=== PATIENT | female | born 1940 | race Caucasian/White ===

== ENCOUNTER 2019-12-01 10:51 | Outpatient (CLI) | payer MEDICARE, SELFPAY ==
--- NOTE | ~2019-12-01 | XR_ITS ---
EXAMINATION: XR lumbar spine 2-3V DATE: 12/01/2019 11:09 INDICATION: Radiculopathy and left groin pain TECHNIQUE: Anteroposterior and lateral views of the lumbar spine, and cone-down lateral view of the l umbosacral junction were obtained. COMPARISON: 07/08/2016 FINDINGS: There are 5 mm of stable anterolisthesis of L4 on L5 and 3 mm of stable retrolisthesis of L 2 on L3 and L3 on L4. There is severe loss of intervertebral disc space height at all levels of the l umbar spine. There is no fracture. The vertebral body heights are normal. There is severe facet osteo arthritis of the lower lumbar spine. The bowel gas pattern is normal. Calcified atherosclerosis is no hoang. IMPRESSION: 1. Severe lumbar spondylosis without acute findings or significant interval change. Reviewed, dictated and finalized at location B. IMPRESSION: 1. Severe lumbar spondylosis without acute findings or significant interval jayde nge.
== END 2019-12-01 10:52 | disposition home or self-care (01) ==
LOC: CHSIMG 10:54
PROVIDERS: PCP Physician Assistant; Visit Provider Physician Assistant
DX: M54.16 Radiculopathy, lumbar region (principal)
CPT/HCPCS: 72100

== ENCOUNTER 2020-02-10 11:35 | Outpatient (CLI) | payer MEDICARE, SELFPAY ==
--- NOTE | 2020-02-10 12:23 | ECHO_ITS ---
Patient Info Name: William Kimball Age: 79 years : 1940 Gender: Female Ht: 65 in Wt: 128 lbs BSA: 1.63 m2 HR: 77 bpm BP: 147 / 70 mmHg Heart Rhythm: Sinus Rhythm Technical Quality: Fair Exam Date: 02/10/2020 12:54 PM Exam Location: [facility], [place] Patient Status: Outpatient Admit Date: 02/10/2020 Staff Ordering Physician: Surendra Cox DO Manager Assembly: Beverley Gonzalez RDCS Attending Provider: Surendra Cox DO Referring Physician: Kenny AMBROCIO; Exam Type: CA echo dop color flow w con Study Info Indications I35.1 - Nonrheumatic aortic (valve) insufficiency Strain analysis performed. Complete two-dimensional, color flow and Doppler transthoracic echocardiogram is performed with contrast to opacify the left ventricle and to improve the deliniation of the left ventricle endocardial borders. Contrast/Agitated Saline Contrast/Ag. Saline: Definity Amount: 4.00 ml New IV Access: Antecubital Space and Left Site Condition: No extravasation, Site dressing applied and IV removed History/Risk Factors Hypertension: Yes Dyslipidemia: Yes Congenital Heart Disease (CHD): No Peripheral Arterial Disease (PAD): No Myocardial Infarction (DC): No Chronic Lung Disease: No Obesity: No Renal Disease: No Coronary Artery Disease (CAD) No Congestive Heart Failure (CHF): No Cardiomyopathy/LV Systolic Dysfunction: No Diabetes Mellitus: No COPD: No Tobacco Use: Never Cerebrovascular Disease: No Family History: Coronary Artery Disease Deep Vein Thrombosis (DVT): None Dialysis: None Frailty Scale (CSHA): 2: Well Cardiac Arrest: No Summary 1. Left ventricular chamber dimension is normal. 2. Definity contrast administered improved wall motion interpretation. 3. Left ventricular systolic function is normal, estimated at 65-70%. 4. The left ventricular diastolic function is grade I diastolic dysfunction. 5. E/e' 10 is mildly elevated. 6. Global longitudinal strain is normal at -22.7%. 7. There is mild aortic valve sclerosis. 8. There is mild to moderate aortic valve regurgitation. 9. No pulmonary hypertension, estimated pulmonary arterial systolic pressure is 35 mmHg. Left Ventricle Definity contrast administered improved wall motion interpretation. E/e' 10 is mildly elevated. Global longitudinal strain is normal at -22.7%. Left ventricular chamber dimension is normal. Left ventricular systolic function is normal, estimated at 65-70%. The left ventricular diastolic function is grade I diastolic dysfunction. Right Ventricle Right ventricular chamber dimension is normal. Right ventricular systolic function is normal. Left Atria Left atrial chamber dimension is normal. Right Atria Chiari network noted in right atrium which is normal remnant. Right atrial chamber dimension is normal. Aortic Valve Cannot determine number of aortic valve leaflets. The aortic valve is not well visualized. There is mild aortic valve sclerosis. There is no aortic valve stenosis. There is mild to moderate aortic valve regurgitation. Pulmonic Valve There is no pulmonic regurgitation. Mitral Valve There is no mitral valve stenosis. There is no mitral valve regurgitation. Tricuspid Valve There is no tricuspid valve regurgitation. No pulmonary hypertension, estimated pulmonary arterial systolic pressure is 35 mmHg. Pericardium/Pleural
[2020-02-10 12:44] LABS: Alanine Aminotransferase 23 U/L (14-59); Albumin Level 4.2 g/dL (3.4-5.0); Alkaline Phosphatase 57 U/L (46-116); Anion Gap 8 mmol/L (8-16); Aspartate Amino Transferase 20 U/L (15-37); Bilirubin,Total 0.6 mg/dL (0.00-1.00); Blood Urea Nitrogen 17 mg/dL (7-18); Calcium 9.6 mg/dL (8.5-10.1); Carbon Dioxide 30 mmol/L (21-32); Chloride 103 mmol/L (98-108); Cholesterol 168 mg/dL (0-200); Estimated Glomerular Filt Rate > 60; Glucose 85 mg/dL (70-99); HDL Direct 53 mg/dL (40-60); LDL Cholesterol Calculated 104 mg/dL (<130); Osmolality Calculated 292 mOsm/kg (285-295); Potassium 4.1 mmol/L (3.5-5.1); Sodium 141 mmol/L (136-145); Total Protein 6.8 g/dL (6.4-8.2); Triglycerides 56 mg/dL (0-150)
== END 2020-02-10 11:36 | disposition home or self-care (01) ==
LOC: CHSIMG 11:36
PROVIDERS: PCP Physician Assistant; Visit Provider Internal Medicine Cardiovascular Disease
DX: E78.5 Hyperlipidemia, unspecified (principal); I35.1 Nonrheumatic aortic (valve) insufficiency
CPT/HCPCS: 36415; 80053; 80061; C8929

== ENCOUNTER 2022-03-01 12:16 | Outpatient (CLI) | payer MEDICARE, SELFPAY ==
--- NOTE | 2022-03-01 12:22 | ECHO_ITS ---
Patient Info Name: William Kimball Age: 81 years : 1940 Gender: Female Ht: 64 in Wt: 123 lbs BSA: 1.59 m2 HR: 67 bpm BP: 181 / 83 mmHg Technical Quality: Fair Exam Date: 03/01/2022 12:21 PM Exam Location: [facility] Patient Status: Outpatient Admit Date: 03/01/2022 Staff Ordering Physician: Surendra Cox DO Director Of Agronomy: Hussein Jordan RDCS, RT Attending Provider: Surendra Cox DO Referring Physician: Kenny AMBROCIO; Exam Type: CA echo doppler color flow Study Info Indications I35.1 - Nonrheumatic aortic (valve) insufficiency Complete two-dimensional, color flow and Doppler transthoracic echocardiogram is performed. Strain analysis performed. History/Risk Factors Hypertension: Yes Dyslipidemia: Yes Congenital Heart Disease (CHD): No Peripheral Arterial Disease (PAD): No Myocardial Infarction (KS): No Chronic Lung Disease: No Obesity: No Renal Disease: No Coronary Artery Disease (CAD) No Congestive Heart Failure (CHF): No Cardiomyopathy/LV Systolic Dysfunction: No Diabetes Mellitus: No COPD: No Tobacco Use: Never Cerebrovascular Disease: No Family History: Coronary Artery Disease Deep Vein Thrombosis (DVT): None Dialysis: None Frailty Scale (CSHA): 2: Well Cardiac Arrest: No Summary 1. Complete two-dimensional, color flow and Doppler transthoracic echocardiogram is performed. 2. Left ventricular chamber dimension is normal. 3. Left ventricular systolic function is normal, estimated at 60-65%. 4. The left ventricular diastolic function is grade I diastolic dysfunction. 5. E/e' 9 is minimally elevated. 6. Global longitudinal strain is normal at -21.4%. 7. There is mild aortic valve sclerosis. 8. There is mild aortic valve regurgitation. 9. The mitral valve has mildly calcified annulus. 10. There is mild mitral valve regurgitation. 11. There is trace tricuspid valve regurgitation. Left Ventricle E/e' 9 is minimally elevated. Global longitudinal strain is normal at -21.4%. Left ventricular chamber dimension is normal. Left ventricular systolic function is normal, estimated at 60-65%. The left ventricular diastolic function is grade I diastolic dysfunction. Right Ventricle Right ventricular systolic function is normal and with normal TAPSE 1.9 cm. Right ventricular chamber dimension is normal. Left Atria Left atrial chamber dimension is normal. Right Atria Right atrial chamber dimension is normal. Aortic Valve The aortic valve is trileaflet. There is mild aortic valve sclerosis. There is no aortic valve stenosis. There is mild aortic valve regurgitation. Pulmonic Valve There is no pulmonic regurgitation. Mitral Valve The mitral valve has mildly calcified annulus. There is no mitral valve stenosis. There is mild mitral valve regurgitation. Tricuspid Valve There is trace tricuspid valve regurgitation. RVSP is not calculated due to an inadequate TR jet. Pericardium/Pleural There is no pericardial effusion. Inferior Vena Cava Normal inferior vena cava with >50% collapse upon inspiration consistent with normal right atrial pressure, 5 mmHg. Aorta The aortic root size at the sinus of Valsalva is normal. Left Ventricular Outflow Tract Name Value Normal
== END 2022-03-01 12:17 | disposition home or self-care (01) ==
LOC: CHSIMG 12:18
PROVIDERS: PCP Physician Assistant; Visit Provider Internal Medicine Cardiovascular Disease
DX: I35.1 Nonrheumatic aortic (valve) insufficiency (principal)
CPT/HCPCS: 93306

== ENCOUNTER 2024-06-25 10:08 | Outpatient (CLI) | payer MEDICARE, SELFPAY ==
--- NOTE | ~2024-06-25 | XR_ITS ---
Right Shoulder Technique: AP and scapular Y views were obtained. Clinical History: Pain Findings: No fracture or dislocation is seen. Osseous alignment is anatomic. The glenohumeral and acr omioclavicular joints demonstrate mild degenerative change. Soft tissues are unremarkable. Impression: Mild degenerative change, as above. Reviewed, dictated and finalized at [facility]. OR [facility] Impression: Mild degenerative change, as above.
--- OUTSIDE RECORDS SUMMARY | 2024-06-25 10:46 | XMS_ITS | Clinical Summary ---
Author Organization [facility] Address [address] [place] [id number] Care Team Providers Care Batch Weigher Name Role Phone Unavailable Primary Care Provider Unavailabl e Social History Tobacco Use Types Packs/Day Years Used Date Smoking Tobacco: Never Assessed Comments Unknown Sex and Gender Information Value Date Recorded Sex Assigned at Not on file Legal Sex Female 2:54 AM CDT Gender Identity Not on file Sexual Orientation Not on file Plan of Treatment Health Maintenance Due Date Last Done Comments DTaP, Tdap and Td Vaccines ( 1 - Tdap) 1960 Zoster Vaccines (1 of 2) 1991 Dexa Scan (General) 2006 Pneumococcal Vaccine: 65+ Ye ars (1 of 1 - PCV) 2006 RSV Immunization or 60+ Years (1 - 1-dose 75+ series) 2016 COVID-19 Vaccine (2023-2 5 season) 2024 Influenza Adult (#1) 2024 Meningococcal B Vaccine Aged Out No l onger eligible based on patient's age to complete this topic Meningococcal Vaccine Aged Out No kena christian eligible based on patient's age to complete this topic RSV Immunizations Under 20 Months Aged Out No longer eligible based on patient's age to complete this topic
--- OUTSIDE RECORDS SUMMARY | 2024-06-25 10:46 | XMS_ITS | Clinical Summary ---
Author Organization [facility] Address [address] [place] [address] Phone Care Team Providers Care Cost Accounting Manager Name Role Phone Michell Marks MD Primary Care Provider [phone] Allergies Active Allergy Reactions Criticality Noted Date Comments Sulfa Antibiotics Nausea Medications Citalopram Hydrobromide (CELEXA PO) Take by mouth. Active Cyanocobalamin (VITAMIN B-12 PO) Take 1 Tab by mouth daily. Active atorvastatin (LIPITOR) 10 MG Tablet Take 10 mg by mouth daily. Active vitamin D (CHOLECALCIFEROL) 1000 UNIT Tablet Take 1,000 Units by mouth daily. Active Multiple Vitamin (MULTI-VITAMIN PO) Take by mouth. Active sertraline (ZOLOFT) 50 MG Tablet Take 50 mg by mouth daily. Active VITAMIN E PO Take 1 Tab by mouth daily. Active amLODIPine (NORVASC) 5 MG Tablet Take 7.5 mg by mouth daily. Active Active Problems Problem Noted Date Diagnosed Date Depression Anxiety HTN (hypertension) Immunizations Immunization Administration Dates Next Due Influenza Vaccine greater than 3 yrs 05/05/2014 Family History Medical History Relation Name Comments Cancer Brother leukemia and my eloma Heart Attack Father Heart Attack Mother Relation Name Status Comments Brother Father Mother Social History Tobacco Use Types Packs/Day Years Used Date Smoking Tobacco: Never Smokeless Tobacco: Never Alcohol Use Standard Drinks/Week Comments No 0 (1 standard drink = 0.6 oz pur e alcohol) Comments Unknown Sex and Gender Information Value Date Recorded Sex Assigned at Not on file Legal Sex Female 11:16 PM CDT Gender Identity Not on file Sexual Orientation Not on file Last Filed Vital Signs Vital Sign Reading Time Taken Comments Blood Pressure 110/82 08/20/2017 6:54 AM CDT Pulse 70 08/20/2017 5:24 AM CDT Temperature 36 C (96.8 F) 08/20/2017 6:54 AM CDT Respiratory Rate 16 08/20/2017 6:54 AM CDT Oxygen Saturation 97% 08/20/2017 6:54 AM CDT Inhaled Oxygen Concentration - - Weight 58.5 kg (129 lb) 08/11/2017 11:00 AM CDT Height 165.1 cm (5' 5 ) 08/11/2017 11:00 AM CDT Body Mass Index 21.47 08/11/2017 11:00 AM CDT Plan of Treatment Health Maintenance Due Date Last Done Comments DEXA Bone Density 1940 Hepatitis C Virus (HCV) Screening 1940 TdaP Immunization 1940 Pneumococcal Immunization (50+ years) (1 of 1 - PCV) 1991 Zoster Immunization (1 of 2) 1991 Respiratory Syncytial Virus (RSV) Immunization (Adult) (1 - 1-dose 75+ series) 2016 Influenza Immunization (#1) 01/04/202412/05, 01/19/2016, 05/05/2014 SARS-COV-2 Immunization ( season) 2024 10/29/2021, 03/26/2021, 07/10/2020, Additional history exists Hepatitis B Immunization Aged Out No longer eligible based on patient's age to complete this topic Meningococcal Immunization (ACWY) Aged Out No longer eligible based on patient's age to complete this topic Rotavirus Immunization Aged Out No lo nger eligible based on patient's age to complete this topic Care Teams Cost Accounting Manager Relationship Specialty Start Date End Date Michell Marks MD [phone] [place] [address] PCP - General Family Medicine 12/15/18
--- OUTSIDE RECORDS SUMMARY | 2024-06-25 10:46 | XMS_ITS | Data Portability ---
[facility] Address [address] [facility] [place] [address] Care Team Providers Care Log Rider Name Role Phone FLAVIO NAVARRO Primary Care Provider Assessment No assessment recorded. Plan of Treatment Reminders Order Date Submit Date Provider Last Modified By Organization Details Last Modified Time Details Appointments ANY 15 2024 09:30A George Navarro PA-C Not available Not available Not available Lab CBC 2023 024 [facility], [address] [facility], [facility], [place], [address], 01/27/2024 09:22:33 CMP, serum or plasma 2023 024 [facility], [address] [facility], [facility], [place], [address], 01/27/2024 09:22:31 lipid panel, serum 2023 024 [facility], [address] [facility], [facility], [place], [address], 01/27/2024 09:22:30 HbA1c (hemoglob in A1c), blood 2023 024 ARIAN In-Office Order, Internal Use Only DO Not Attach Compendium DO Not Attach Compendium, Do Not Delete/merge, [id number] 01/26/2024 12:08:22 CBC 2022 023 [facility], [address] [facility], [address], [place], [address], 04/04/2023 06:19:49 CMP, serum or plasma 2022 023 [facility], [address] [facility], [place], [address], 04/04/2023 06:19:48 lipid panel, serum 2022 023 [facility], [address] [facility], [place], [address], 04/04/2023 06:19:47 Referral None recorded. Procedures None recorded. Surgeries None recorded. Imaging XR, shoulder, 2 or more view 2024 025 [facility]), [address] [place], [address], 06/25/2024 10:43:31 Medication Orders escitalop yolande 20 mg tablet 2022 023 ARIAN [facility], [address] [place] [address], [address], [place], [place], [id number], 04/03/2023 11:50:[address] 10 mg tablet 2022 023 ARIAN [facility], [address], [address], [place], [place], [id number], 04/03/2023 11:50:01 atorvasta tin 10 mg tablet 2022 023 ARIAN [facility], [address], [address], [place], [place], [id number], 04/03/2023 11:50:00 amlodipin e 10 mg tablet 2022 023 ARIAN [facility], [address], [address], [place], [place], [id number], 04/03/2023 11:50:00 Depo-Medr ol 80 mg/mL suspensio n for injection 2021 022 [email or web address] Not available 04/03/2023 11:26:47 Patient TargetsNo targets recorded. Patient Instructions Encounter Date Encounter Id Patient Instructions Last Modified By Organization Details Last Modified Time 01/21/2022 [id number] dermatitis: care instructions jnanney Not available 01/21/2022 10:27:45 04/03/2023 [id number] influenza (flu) vaccine: care instructions jnanney Not available 04/03/2023 12:39:20 enuresis: care instructions jnanney Not available 04/03/2023 11:49:53 learning about high blood pressure jnanney Not available 04/03/2023 11:49:53 07/25/2023 [id number] learning about high blood pressure jnanney Not available 07/25/2023 11:32:48 01/26/2024 [id number] learning about high blood pressure jnanney Not available 01/26/2024 11:36:55 advance care planning: care instructions jnanney Not available 01/26/2024 11:36:55 preventing falls : care instructions jnanney Not available 01/26/2024 11:36:54 Quitting Tobacco : Care Instructions jnanney Not available 01/26/2024 11:36:55 [facility] jnanney Not available 01/26/2024 11:36:54 eating healthy foods: care instructions jnanney Not available 01/26/2024 11:36:54 AD8 Dementia Screening Interview jnanney Not available 01/26/2024 11:36:54 06/25/2024 [id number] eating healthy foods: care instructions jnanney Not available 06/25/2024 10:42:32 Reason for Referral None Reported. Results Created Date Observation Date Name Description Value Unit Range Abnormal Flag Note LastModifiedBy Organization Detail LastModifiedTime 04/03/2004/03/2023 LIPID PANEL cholesterol, total 165 mg/dL 100-19 9 Not Available [facility] [address] [place] [address], [address], 04/04/2023 06:19:47 04/03/2004/03/2023 LIPID PANEL triglyceride s 98 mg/dL 0-149 Not Available [address], [address], 04/04/2023 06:19:47 04/03/20 23 04/03/2023 LIPID PANEL HDL cholesterol 52 mg/dL 40-999 Not Available [address], [address], 04/04/2023 06:19:47 04/03/20 23 04/03/2023 LIPID PANEL VLDL cholesterol cathleen 20 mg/dL 5-40 Not Available [address], [address], 04/04/2023 06:19:47 04/03/20 23 04/03/2023 LIPID PANEL LDL chol calc ([facility]) 107 mg/dL 0-99 above high normal Not Available [address], [address], 04/04/2023 06:19:47 04/03/20 23 04/03/2023 COMP. METAB OLIC PANEL (14) glucose 78 mg/dL 70-99 Not Available [address], [address], 04/04/2023 06:19:48 04/03/20 23 04/03/2023 COMP. METAB OLIC PANEL (14) BUN 17 mg/dL 8-27 Not Available [address], [address], 04/04/2023 06:19:48 04/03/20 23 04/03/2023 COMP. METAB OLIC PANEL (14) creatinine 0.80 mg/dL 0.76-1 .27 Not Available [address], [address], 04/04/2023 06:19:48 04/03/20 23 04/03/2023 COMP. METAB OLIC PANEL (14) eGFR 74 >=60 Units for eGFR value s are mL/mi n/1.7 3 The eGFR Calcu latio n has not been valid ated for patie nts under the age of 18. If test resul ts are displ ayed for a patie nt under the age of 18, disre jessica that value . Not Available [address], [address], 04/04/2023 06:19:48 04/03/20 23 04/03/2023 COMP. METAB OLIC PANEL (14) BUN/creatini ne ratio 21 10-28 Not Available [address], [address], 04/04/2023 06:19:48 04/03/20 23 04/03/2023 COMP. METAB OLIC PANEL (14) sodium 139 mmol/ L 134-14 4 Not Available [address], [address], 04/04/2023 06:19:48 04/03/20 23 04/03/2023 COMP. METAB OLIC PANEL (14) potassium 4.8 mmol/ L 3.5-5. 2 Not Available [address], [address], 04/04/2023 06:19:48 04/03/20 23 04/03/2023 COMP. METAB OLIC PANEL (14) chloride 101 mmol/ L 96-106 Not Available [address], [address], 04/04/2023 06:19:48 04/03/20 23 04/03/2023 COMP. METAB OLIC PANEL (14) carbon dioxide, total 29 mmol/ L 20-29 Not Available [address], [address], 04/04/2023 06:19:48 04/03/20 23 04/03/2023 COMP. METAB OLIC PANEL (14) calcium 10.1 mg/dL 8.7-10 .3 Not Available [address], [address], 04/04/2023 06:19:48 04/03/20 23 04/03/2023 COMP. METAB OLIC PANEL (14) protein, total 6.7 g/dL 6.0-8. 5 Not Available [address], [address], 04/04/2023 06:19:48 04/03/20 23 04/03/2023 COMP. METAB OLIC PANEL (14) albumin 4.3 g/dL 3.7-4. 7 Not Available [address], [address], 04/04/2023 06:19:48 04/03/20 23 04/03/2023 COMP. METAB OLIC PANEL (14) globulin, total 2.4 g/dL 1.5-4. 5 Not Available [address], [address], 04/04/2023 06:19:48 04/03/20 23 04/03/2023 COMP. METAB OLIC PANEL (14) A/G ratio 1.8 1.2-2. 2 Not Available [address], [address], 04/04/2023 06:19:48 04/03/20 23 04/03/2023 COMP. METAB OLIC PANEL (14) bilirubin, total 0.4 mg/dL 0.0-1. 2 Not Available [address], [address], 04/04/2023 06:19:48 04/03/20 23 04/03/2023 COMP. METAB OLIC PANEL (14) alkaline phosphatase 98 IU/L 44-121 Not Available [address], [address], 04/04/2023 06:19:48 04/03/20 23 04/03/2023 COMP. METAB OLIC PANEL (14) AST (SGOT) 27 IU/L 0-40 Not Available [address], [address], 04/04/2023 06:19:48 04/03/20 23 04/03/2023 COMP. METAB OLIC PANEL (14) ALT (SGPT) 12 IU/L 0-32 Not Available [address], [address], 04/04/2023 06:19:48 04/03/2004/03/2023 CBC, PLATE LET, NO DIFFE RENTI AL WBC 7.2 x10e3 /uL 3.4-10 .8 Not Available [address], [address], 04/04/2023 06:19:49 04/03/2004/03/2023 CBC, PLATE LET, NO DIFFE RENTI AL RBC 4.28 x10e6 /uL 3.77-5 .28 Not Available [address], [address], 04/04/2023 06:19:49 04/03/2004/03/2023 CBC, PLATE LET, NO DIFFE RENTI AL hemoglobin 13.0 g/dL 11.1-1 5.9 Not Available [address], [address], 04/04/2023 06:19:49 04/03/20 23 04/03/2023 CBC, PLATE LET, NO DIFFE RENTI AL hematocrit 39.8 % 34.0-4 6.6 Not Available [address], [address], 04/04/2023 06:19:49 04/03/2004/03/2023 CBC, PLATE LET, NO DIFFE RENTI AL MCV 93 fL 79-97 Not Available [address], [address], 04/04/2023 06:19:49 04/03/2004/03/2023 CBC, PLATE LET, NO DIFFE RENTI AL MCH 30.4 pg 26.6-3 3.0 Not Available [address], [address], 04/04/2023 06:19:49 04/03/2004/03/2023 CBC, PLATE LET, NO DIFFE RENTI AL MCHC 32.7 g/dL 31.5-3 5.7 Not Available [address], [address], 04/04/2023 06:19:49 04/03/2004/03/2023 CBC, PLATE LET, NO DIFFE RENTI AL RDW 14.5 % 11.5-1 4.5 Not Available [address], [address], 04/04/2023 06:19:49 04/03/2004/03/2023 CBC, PLATE LET, NO DIFFE RENTI AL platelets 281 x10e3 /uL 150-45 0 Mean Plate let Volum e 10.8 fL 8.9-1 2.7 N Not Available [address], [address], 04/04/2023 06:19:49 04/03/20 23 04/03/2023 CBC, PLATE LET, NO DIFFE RENTI AL NRBC 0 % 0-0 Not Available [address] [place], [address], 04/04/2023 06:19:49 04/03/2004/04/2023 CARDI OVASC ULAR REPOR T interpretati on Note Suppl jyoti uche repor t is avail able. Not Available [address], [address], 04/04/2023 06:19:49 04/03/2004/04/2023 CARDI OVASC ULAR REPOR T pdf . Not Available [facility] & [address], [address], 04/04/2023 06:19:49 01/26/2001/27/2024 LIPID PANEL cholesterol, total 172 mg/dL 100-19 9 Not Available [address], [address], 01/27/2024 09:22:30 01/26/2001/27/2024 LIPID PANEL triglyceride s 82 mg/dL 0-149 Not Available [address], [address], 01/27/2024 09:22:30 01/26/2001/27/2024 LIPID PANEL HDL cholesterol 53 mg/dL >39 Not Available [facility] & [address], [address], 01/27/2024 09:22:30 01/26/2001/27/2024 LIPID PANEL VLDL cholesterol cathleen 15 mg/dL 5-40 Not Available [address], [address], 01/27/2024 09:22:30 01/26/2001/27/2024 LIPID PANEL LDL chol calc ([facility]) 104 mg/dL 0-99 above high normal Not Available [address], [address], 01/27/2024 09:22:30 01/26/20 24 01/27/2024 COMP. METAB OLIC PANEL (14) glucose 78 mg/dL 70-99 Not Available [address], [address], 01/27/2024 09:22:31 01/26/20 24 01/27/2024 COMP. METAB OLIC PANEL (14) BUN 14 mg/dL 8-27 Not Available [address], [address], 01/27/2024 09:22:31 01/26/20 24 01/27/2024 COMP. METAB OLIC PANEL (14) creatinine 0.95 mg/dL 0.57-1 .00 Not Available [address], [address], 01/27/2024 09:22:31 01/26/20 24 01/27/2024 COMP. METAB OLIC PANEL (14) eGFR 60 mL/mi n/1.7 3 >59 Not Available [address], [address], 01/27/2024 09:22:31 01/26/20 24 01/27/2024 COMP. METAB OLIC PANEL (14) BUN/creatini ne ratio 15 12-28 Not Available [address], [address], 01/27/2024 09:22:31 01/26/20 24 01/27/2024 COMP. METAB OLIC PANEL (14) sodium 138 mmol/ L 134-14 4 Not Available [address], [address], 01/27/2024 09:22:31 01/26/20 24 01/27/2024 COMP. METAB OLIC PANEL (14) potassium 4.1 mmol/ L 3.5-5. 2 Not Available [address], [address], 01/27/2024 09:22:31 01/26/20 24 01/27/2024 COMP. METAB OLIC PANEL (14) chloride 100 mmol/ L 96-106 Not Available [address], [address], 01/27/2024 09:22:31 01/26/20 24 01/27/2024 COMP. METAB OLIC PANEL (14) carbon dioxide, total 24 mmol/ L 20-29 Not Available [address], [address], 01/27/2024 09:22:31 01/26/20 24 01/27/2024 COMP. METAB OLIC PANEL (14) calcium 9.4 mg/dL 8.7-10 .3 Not Available [address], [address], 01/27/2024 09:22:31 01/26/2001/27/2024 COMP. METAB OLIC PANEL (14) protein, total 6.8 g/dL 6.0-8. 5 Not Available [address], [address], 01/27/2024 09:22:31 01/26/20 24 01/27/2024 COMP. METAB OLIC PANEL (14) albumin 4.3 g/dL 3.7-4. 7 Not Available [address], [address], 01/27/2024 09:22:31 01/26/20 24 01/27/2024 COMP. METAB OLIC PANEL (14) globulin, total 2.5 g/dL 1.5-4. 5 Not Available [address], [address], 01/27/2024 09:22:31 01/26/20 24 01/27/2024 COMP. METAB OLIC PANEL (14) bilirubin, total 0.5 mg/dL 0.0-1. 2 Not Available [address], [address], 01/27/2024 09:22:31 01/26/20 24 01/27/2024 COMP. METAB OLIC PANEL (14) alkaline phosphatase 76 IU/L 44-121 Not Available [address], [address], 01/27/2024 09:22:31 01/26/20 24 01/27/2024 COMP. METAB OLIC PANEL (14) AST (SGOT) 23 IU/L 0-40 Not Available [address], [address], 01/27/2024 09:22:31 01/26/20 24 01/27/2024 COMP. METAB OLIC PANEL (14) ALT (SGPT) 11 IU/L 0-32 Not Available [address], [address], 01/27/2024 09:22:31 01/26/2001/27/2024 CARDI OVASC ULAR REPOR T interpretati on Note Suppl ement al repor t is avail able. Not Available [address], [address], 01/27/2024 09:22:32 01/26/2001/27/2024 CARDI OVASC ULAR REPOR T pdf . Not Available [address], [address], 01/27/2024 09:22:32 01/26/20 24 01/27/2024 CBC, PLATE LET, NO DIFFE RENTI AL WBC 6.5 x10e3 /uL 3.4-10 .8 Not Available [address], [address], 01/27/2024 09:22:32 01/26/2001/27/2024 CBC, PLATE LET, NO DIFFE RENTI AL RBC 4.09 x10e6 /uL 3.77-5 .28 Not Available [address], [address], 01/27/2024 09:22:32 01/26/2001/27/2024 CBC, PLATE LET, NO DIFFE RENTI AL hemoglobin 12.6 g/dL 11.1-1 5.9 Not Available [address], [address], 01/27/2024 09:22:32 01/26/2001/27/2024 CBC, PLATE LET, NO DIFFE RENTI AL hematocrit 38.9 % 34.0-4 6.6 Not Available [address], [address], 01/27/2024 09:22:32 01/26/2001/27/2024 CBC, PLATE LET, NO DIFFE RENTI AL MCV 95 fL 79-97 Not Available [address], [address], 01/27/2024 09:22:32 01/26/2001/27/2024 CBC, PLATE LET, NO DIFFE RENTI AL MCH 30.8 pg 26.6-3 3.0 Not Available [address], [address], 01/27/2024 09:22:32 01/26/2001/27/2024 CBC, PLATE LET, NO DIFFE RENTI AL MCHC 32.4 g/dL 31.5-3 5.7 Not Available [facility] [address] [place], [address], 01/27/2024 09:22:32 01/26/20 24 01/27/2024 CBC, PLATE LET, NO DIFFE RENTI AL RDW 13.0 % 11.7-1 5.4 Not Available [facility] [address] [place] [address], [address], 01/27/2024 09:22:32 01/26/20 24 01/27/2024 CBC, PLATE LET, NO DIFFE RENTI AL platelets 246 x10e3 /uL 150-45 0 Not Available [address], [address], 01/27/2024 09:22:32 01/26/20 24 01/26/2024 HbA1c (hemo globi n A1c), blood HbA1c 4.9 Not Available In-Office Order Internal Use Only DO Not Attach Compendium DO Not Attach Compendium, Do Not Delete/merge, [id number] 01/26/2024 11:35:30 03/01/20 22 03/01/2022 stres s echoc ardio gram with doppl er color flow (PROC ) No observ [facility]ion [facility] ed[facility] [address], [place], [address], 03/01/2022 17:03:20 Result Notes None recorded. Problems Name Problem SNOMED Code Status Onset Date Resolution Date Notes Provider Name and Address Organization Details Recorded Time Hypertensive disorder 68907713 Active 2019 Not Available [facility] 0 10:42:01 Problem Notes None recorded. Procedures Surgical History Date Name Laterality Status Provider Name and Address Organization Details Recorded Time 05/05/19 18 excision of basal cell carcinoma completed JESSENIA Rice - [facility] 05/12/2019 10:17:37 05/05/19 11 cataract surgery completed JESSENIA Rice [facility] 05/12/2019 10:17:26 05/05/19 09 procedure on spine completed Amanda Rojo [facility] 05/12/2019 10:18:02 05/05/19 09 bone graft completed Amanda Rojo [facility] 05/12/2019 10:18:36 05/05/19 08 cataract surgery completed JESSENIA Rice [facility] 05/12/2019 10:17:20 05/05/18 98 hemorrhoidectomy completed Amanda Rojo MA [facility] 05/12/2019 10:16:29 05/05/18 98 fissurectomy with sphincterotomy completed Amanda Rojo MA [facility] 05/12/2019 10:16:51 05/05/18 93 hysterectomy completed Amanda Rojo MA [facility] 05/12/2019 10:17:03 05/05/18 75 Tubal Ligation completed Amanda Rojo MA [facility] 05/12/2019 10:16:12 Imaging Results Imaging Date Name Status LastModified by Organization Details LastModified Time 03/01/2022 stress echocardiogram with doppler color flow (PROC) completed [facility] [address], [place], [address], 03/01/2022 17:03:20 Procedure Notes None recorded. Medical Equipment None Reported. Allergies Allergen ID Allergen Name Allergen Category Reaction Reaction Severity Criticality Documentation Date Start Date Code Code System Note Provider Name and Address Organization Details Recorded Time 100839 lisinopri l medicatio n Not available Not available Not available 05/12/2019 65707 RxNorm Not Available Not Available Not Available Medications Name Sig Start Date Stop Date Status Note LastModified by Organization Details LastModified Time amlodipine besylate 5 mg tabs 11/17 completed Not Available Not Available Not Available losartan potassium 25 mg tabs 12/07 completed Not Available Not Available Not Available montelukast sodium 10 mg tabs 11/17 completed Not Available Not Available Not Available escitalopra m oxalate 10 mg tabs 12/07 completed Not Available Not Available Not Available atorvastati n calcium 10 mg tabs 12/07 completed Not Available Not Available Not Available losartan 50 mg tablet TAKE 1 TABLET BY MOUTH DAILY 04/03 completed Not Available Not Available Not Available atorvastati n 10 mg tablet TAKE 1 TABLET BY MOUTH ONCE DAILYNE EDS APPT BEFORE ANY MORE REFILLS 2024 active Not Available Not Available Not Avai lable amlodipine 5 mg tablet TAKE 1 TABLET BY MOUTH DAILY 04/03 completed Not Available Not Available Not Available Depo-Medrol 80 mg/mL suspension for injection Take 1 mL by injection route. 04/03 completed Not Available Not Available Not Available amlodipine 10 mg tablet TAKE 1 TABLET BY MOUTH DAILY 2024 active Not Available Not Available Not Avai lable losartan 25 mg tablet TAKE 1 TABLET BY MOUTH EVERY DAY 09/17 completed Not Available Not Available Not Available montelukast 10 mg tablet TAKE 1 TABLET BY MOUTH DAILYNE EDS APPT BEFORE ANY MORE REFILLS 2024 active Not Available Not Available Not Avai lable gabapentin 100 mg capsule TAKE 1 CAPSULE BY MOUTH 3 TIMES DAILY 01/21 completed Not Available Not Available Not Available losartan 100 mg tablet TAKE 1 TABLET BY MOUTH DAILY active Not Available Not Available No t Available escitalopra m 10 mg tablet TAKE 1 TABLET BY MOUTH EVERY DAY 11/17 completed Not Available Not Available Not Available escitalopra m 20 mg tablet TAKE 1 TABLET BY MOUTH DAILY 2023 active Not Available Not Available Not Avai lable Fluzone High-Dose Quad 2020 (PF) 240 mcg/0.7 mL IM syringe TO BE ADMINISTE RED BY PHARMACIS T FOR IMMUNIZAT ION 11/17 completed Not Available Not Available Not Available Vitals Date Recorded Body height Body mass index (BMI) Body weight Body temperature Oxygen saturation Oxygen saturation in Arterial blood by Pulse oximetry Heart rate Systolic blood pressure Diastolic blood pressure Provider Name and Address Organization Details Last Updated DateTime 2 165.1 cm 20.6 kg/m2 53466.7 4 g 97.4 [degF] 96 % 96 % 78 /min 120 mm[Hg] 62 mm[Hg] Alejandra campuzano [place] [facility] 2 10:15:57 Date Recorded Body weight Body mass index (BMI) Body height Respiratory rate Heart rate Oxygen saturation Oxygen saturation in Arterial blood by Pulse oximetry Systolic blood pressure Diastolic blood pressure Provider Name and Address Organization Details Last Updated DateTime 3 38456.4 4 g 21.1 kg/m2 165.1 cm 16 /min 77 /min 96 % 96 % 154 mm[Hg] 82 mm[Hg] Tayler Moscoso MA [facility] 3 11:30:13 Date Recorded Body height Body mass index (BMI) Body weight Oxygen saturation Oxygen saturation in Arterial blood by Pulse oximetry Heart rate Systolic blood pressure Diastolic blood pressure Provider Name and Address Organization Details Last Updated DateTime 4 165.1 cm 20.7 kg/m2 85305.2 5 g 98 % 98 % 62 /min 128 mm[Hg] 76 mm[Hg] Tayler Moscoso MA [facility] 4 11:08:06 Date Recorded Body height Body mass index (BMI) Body weight Oxygen saturation Oxygen saturation in Arterial blood by Pulse oximetry Heart rate Systolic blood pressure Diastolic blood pressure Provider Name and Address Organization Details Last Updated DateTime 4 165.1 cm 19.8 kg/m2 59765.4 9 g 98 % 98 % 76 /min 138 mm[Hg] 73 mm[Hg] Megan Lehman MA [facility] 4 11:08:16 Date Recorded Body height Body mass index (BMI) Body weight Oxygen saturation Oxygen saturation in Arterial blood by Pulse oximetry Heart rate Respiratory rate Systolic blood pressure Diastolic blood pressure Provider Name and Address Organization Details Last Updated DateTime 5 165.1 cm 19.6 kg/m2 82641.1 8 g 98 % 98 % 73 /min 16 /min 118 mm[Hg] 68 mm[Hg] Tracy Juarez MA [facility] 5 10:22:28 Social History Question Answer Notes LastModified by Organizat ion Details LastModified Time Tobacco Smoking Status Never Smoker Amanda Rojo MA [facility], [facility] 05/12/2019 10:20:07 Do You Have An Advance Directive? No Information not available 05/12/2019 What Is Your Level Of Alcohol Consumption? None Information not available 05/12/2019 What Is Your Level Of Caffeine Consumption? Moderate Information not available 05/12/2019 How Much Tobacco Do You Chew? None Information not available 05/12/2019 In The 14 Days Before Symptom Onset, Have You Had Close Contact With A Laboratory-carolyni rmed COVID-19 While That Case Was Ill? No Information not available 11/17/2020 In The 14 Days Before Symptom Onset, Have You Had Close Contact With A Person Who Is Under Investigation For COVID-19 While That Person Was Ill? No Information not available 11/17/2020 Have You Been To An Area Known To Be High Risk For COVID-19? No Information not available 11/17/2020 Are You Currently Employed? No Retired Information not available 05/12/2019 What Type Of Diet Are You Following? REGULAR Information not available 05/12/2019 Do You Or Have You Ever Used E-cigarettes Or Vape? Never Used Electronic Cigarettes Information not available 05/12/2019 What Is Your Occupation? Retired Information not available 05/12/2019 Hard Of Hearing Or Deaf In One Or Both Ears? Yes Hearing Aids-bilat eral Information not available 05/12/2019 Legally Blind In One Or Both Eyes? No Information not available 05/12/2019 Live Alone Or With Others? With Others Information not available 05/12/2019 What Was The Date Of Your Most Recent Tobacco Screening? 06/25/2024 Information not available 06/25/2024 What Is Your Relationship Status? Information not available 11/17/2020 Do You Have Smoke And Carbon Monoxide Detectors In Your Home? Yes Information not available 11/17/2020 Are You Passively Exposed To Smoke? No Information not available 05/12/2019 Do You Or Have You Ever Used Smokeless Tobacco? Never Used Smokeless Tobacco Information not available 05/12/2019 How Much Tobacco Do You Smoke? No Information not available 05/12/2019 General Stress Level Medium Information not available 05/12/2019 Do You Feel Stressed (tense, Restless, Nervous, Or Anxious, Or Unable To Sleep At Night)? [id number] Information not available 01/21/2022 Do You Use Any Illicit Or Recreational Drugs? No Information not available 11/17/2020 Has Tobacco Cessation Counseling Been Provided? No Information not available 11/17/2020 On What Date Was Tobacco Cessation Counseling Provided? 06/25/2024 Information not available 06/25/2024 Do You Or Have You Ever Used Any Other Forms Of Tobacco Or Nicotine? No Information not available 11/17/2020 Sex: Female Functional Status Question Answer Note LastModified by Organization D etails LastModified Time Are you able to care for yourself? Yes Information n ot available 05/12/2019 What is your exercise level? None Information not available 01/21/2022 Mental Status None recorded. Family History Relationship Description Onset Age of this Age Resolved Age Notes LastModified by Organization Details LastModified Time Mother Heart valve disorder 24 [email or web address] Not available 05/12 10:15:35 Medical History Condition Response Coronary Artery Disease N Other N Atrial Fibrillation N High Blood Pressure Y Thyroid Problems N Kidney or Bladder Problems N GI Problems N Depression N COPD N Blood Clots N Skin Problems N Eating Disorder N Anemia N Heart Attack (PR) N Anxiety Disorder N Diabetes N Muscle, Joint, or Bone Problems N Seizures/Epilepsy N Acid Reflux (GERD) N Cancer Y Stroke N Asthma N Allergies N ADHD N Substance Abuse N High Cholesterol Y Hepatitis N Liver Disease N Schizophrenia N Headaches N Heart Failure N Osteoporosis N Gynecological History Statement/Question Response Current Control Method Hysterectom y Date of Last Mammogram Obstetrics History GPAL:G 0 P 0 0 0 0 Immunizations Vaccine Type Date Status Note Provider Nam e and Address Organization Details Recorded Time influenza, unspecified formulation 9 completed [place]ESS[place], [place] [facility] 11/17/2020 14:53:59 Tdap 8 [place] [facility] 11/17/2020 14:53:59 Influenza, high-dose, quadrivalent, PF 0 [place] [facility] 11/17/2020 14:53:59 Influenza, high-dose, quadrivalent, PF 1 [place] [facility] 06/25/2024 09:24:22 Influenza, adjuvanted, quadrivalent, PF 2 completed Megan Lehman [place] [facility] 06/25/2024 09:24:22 COVID-19, mRNA, LNP-S, PF, 100 mcg/0.5mL dose or 50 mcg/0.25mL dose 2 completed [place] [facility] 06/25/2024 09:24:22 COVID-19, mRNA, LNP-S, PF, 100 mcg/0.5mL dose or 50 mcg/0.25mL dose 1 [place] [facility] 06/25/2024 09:24:22 zoster live 7 [place] [facility] 06/25/2024 09:24:22 zoster live 8 [place] [facility] 06/25/2024 09:24:22 Influenza, high-dose, trivalent, PF 7 [place] [facility] 06/25/2024 09:24:22 Influenza, high-dose, trivalent, PF 6 [place] [facility] 06/25/2024 09:24:22 Influenza, split virus, trivalent, preservative 5 completed [place] [facility] 06/25/2024 09:24:22 COVID-19, mRNA, LNP-S, PF, 100 mcg/0.5mL dose or 50 mcg/0.25mL dose 1 [place] [facility] 06/12/2020 16:20:10 COVID-19, mRNA, LNP-S, PF, 100 mcg/0.5mL dose or 50 mcg/0.25mL dose 1 [place] [facility] 07/10/2020 17:52:56 Pneumococcal conjugate PCV20, polysaccharide [id number] conjugate, adjuvant, PF 3 completed Tayler Moscoso [place] null, [place] [facility] 04/03/2023 12:32:41 Influenza, high-dose, quadrivalent, PF 3 completed Tayler Moscos[place] [facility] 04/03/2023 12:32:42 Past Encounters Encounter ID Performer Location Encounter Start Date Encounter Closed Date Diagnosis/Indication Diagnosis SNOMED-CT Code Diagnosis ICD10 Code Diagnosis Note [id number] MEKA Patterson [address] [place] [address] 05/12/2019 09:55:14 05/12/2019 11:28:34 Hypertensive disorder 63790738 I10 Severe chr onic obstructive pulmonary disease 293213366 J43.1 Chronic depression 65202 0009 F34.1 Seasonal a llergic rhinitis 148529142 J30.2 [id number] Flavio Navarro PA-C [facility] [address] [place] [address] 12/01/2019 09:32:04 12/01/2019 12:57:46 Lumbar radiculopathy 060954487 M54.16 [id number] Flavio Navarro PA-C [facility] [address] [place] [address] 12/08/2019 10:02:28 12/09/2019 08:16:48 Hypertensive disorder 15149047 I10 Left sided abdominal pain 777132669 R10.32 Lumbar radiculopathy 128 799947 M54.16 [id number] MERCEDES Burden [address] [facility] [address] [place] [address] 06/12/2020 11:16:32 06/13/2020 06:55:11 Administration of SARS-CoV-2 antigen vaccine 978702896 Z23 [id number] MERCEDES Burden [address] [facility] [place] [address] 07/10/2020 10:54:04 07/11/2020 10:52:53 Administration of SARS-CoV-2 antigen vaccine 673953339 Z23 [id number] Flavio Navarro PA-C [facility] [address] [place] [address] 11/17/2020 14:37:47 11/17/2020 15:46:08 Essential hypertension 00681337 I10 [id number] Flavio Navarro PA-C [facility] [address] [place] [address] 07/10/2021 11:04:03 07/10/2021 12:22:48 Hypertensive disorder 00523631 I10 Acute low back pain 2788 82515 M54.50 [id number] Flavio Navarro PA-C [facility] [address] [place] [address] 01/21/2022 10:00:11 01/21/2022 10:56:50 Contact dermatitis 75372962 L23.7 [id number] Flavio Navarro PA-C [facility] [address] [place] [address] 04/03/2023 11:21:04 04/04/2023 16:45:01 Administration of pneumococcal vaccine 62160721 Z23 Administra tion of influenza vaccine 09817665 Z23 Nocturnal enuresis 48040 08 N39.44 Essential hypertension 19702679 I10 Chronic depression 90831 0009 F34.1 Seasonal allergy 5325297 04 J30.2 [id number] Flavio Navarro PA-C [facility] [address] [place] [address] 07/25/2023 10:58:44 07/31/2023 23:35:55 Essential hypertension 25029458 I10 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 Body mass index 20-24 - normal 185431233 Z68.20 [id number] Flavio Navarro PA-C [facility] [address] [place] [address] 01/26/2024 10:53:04 02/04/2024 14:34:18 Adult health examination 683964923 Z00.00 Health Risk Assessment collected and reviewed Essential hypertension 36081377 I10 Body mass index 20-24 - normal 766465412 Z68.20 [id number] Flavio Navarro PA-C [facility] [address] [place] [address] 06/25/2024 10:12:25 06/25/2024 10:44:17 Pain of right shoulder joint 5079676272 3230260 M25.511 Underweight 709090229 R6 3.6 Health Concerns Section Related Observation LastModified by Organization Detai ls LastModified Time None Recorded Concern Status LastModified by Organization Details LastModified Time None Recorded Advance Directives Directive N: Payers Encounter Date Sequence Insurance Name Policy Number Policy Cuenca Covered Member ID Cuenca Member ID Guarantor Name 01/21/2022 1 [facility] (MEDICARE REPLACEMENT/A DVANTAGE - PPO) [id number] Glenita A Podwojski [id number] Waldo Podwojski 01/21/2022 2 [place] Glenita A Podwojski [id number] Waldo Podwojski 04/03/2023 1 [facility] (MEDICARE REPLACEMENT/A DVANTAGE - PPO) [id number] Glenita A Podwojski [id number] Waldo Podwojski 07/25/2023 1 [facility] (MEDICARE REPLACEMENT/A DVANTAGE - PPO) [id number] Glenita A Podwojski [id number] Waldo Podwojski 01/26/2024 1 [facility] (MEDICARE REPLACEMENT/A DVANTAGE - PPO) [id number] Glenita A Podwojski [id number] Waldo Podwojski 06/25/2024 1 [facility] (MEDICARE REPLACEMENT/A DVANTAGE - PPO) [id number] Glenita A Podwojski [id number] Waldo Podwojski Notes Date Note Type Note Provider Name and Address Organization Details Recorded Time 01/21/2022 text/html has a horrible rash on her forearms...very red and itchy Flavio Navarro PA-C Attn: Accounting,[address] [facility], [place], [address], [facility] 01/21/2022 10:28:35 04/03/2023 text/html almost completel y perfect except for urinary frequency at night...needs labs Flavio Navarro PA-C Attn: Accounting,[address] [facility] [place], [address], [facility] 04/03/2023 11:51:58 07/25/2023 text/html check up...no complaints...some times gets a little dizzy but otherwise good... Flavio Navarro PA-C Attn: Accounting,[address] [facility], [place], [address], [facility] 07/25/2023 11:33:45 06/25/2024 text/html ran into the [facility] with rt shoulder 4 to 5 weeks ago..has improved very slightly..limited ROM.. Flavio Navarro PA-C Attn: Accounting,[address] [facility], [place], [address], [facility] 06/25/2024 10:44:13 OBGyn Episode No OBEpisode recorded.
--- OUTSIDE RECORDS SUMMARY | 2024-06-25 10:46 | XMS_ITS | Continuity of Care Document ---
Author Organization [facility] Address [address] [place] [address] Phone Care Team Providers Care Nurse Navigator Name Role Phone Linda Musa MD Unavailable Unavailable Procedures Procedure Date Eye Exam, New Patient Visual Functional Status Assessed Advance Directives Directive Yes / No Effective Date File Name No Information Encounters Encounter Description Practice Location Reason(s) For Visit Diagnoses Date Provider Providers Copied on Encounter [facility], [address], [place], [place], [id number], [place] tel:[phone] SEC [facility] Professional No Information [address] Len[address] Mckeon. [address] [facility] [place] [place], [address], [place]. tel:[phone] Family History Family Member Type Diagnosis Age At Onset No Information Payers Payer name Insurance type Covered green party ID Authoriza tion(s) [place] [id number] [employer] [place] [id number] Social History Type Description Quantity Date Captured Comments Sex Female Smoking Status No Information Chief Complaint And Reason For Visit No Information Reason For Referral Reason For Referral No Information History Of Present Illness Encounter Date Complaint History Of Prese nt Illness No Information Functional Status Date Functional Assessmen t No Information Instructions Date Instruction Additional Infor mation No Information Assessments Type Assessment Date No Information Patient Care Teams Name Effective Dates (start - stop) Status Members No Information
--- OUTSIDE RECORDS SUMMARY | 2024-06-25 10:46 | XMS_ITS | Continuity of Care Document ---
Author Organization [facility] Address [address] [place] [address] Care Team Providers Care Cloth Hauler Name Role Phone FLAVIO NAVARRO Primary Care Provider Assessment No assessment recorded. Plan of Treatment Reminders Order Date Submit Date Provider Last Modified By Organization Details Last Modified Time Details Appointments ANY 15 025 09:30AM Flavio Navarro PA-C Not available Not available Not available Lab None record ed. Referral None record ed. Procedures None record ed. Surgeries None record ed. Imaging XR, should er, 2 or more view 025 06/25/19 25 [facility]), [address] [place], [address], 06/25/2024 10:43:31 Medication Orders None record ed. Patient TargetsNo targets recorded. Patient Instructions Encounter Date Encounter Id Patient Instructions Last Modified By Organization Details Last Modified Time 06/25/2024 [id number] eating healthy foods: care instructions [facility] Not available 06/25/2024 10:42:32 Reason for Referral None Reported. Problems Name Problem SNOMED Code Status Onset Date Resolution Date Notes Provider Name and Address Organization Details Recorded Time Hypertensive disorder 29422202 Active 2019 Not Available [facility] 0 10:42:01 Problem Notes None recorded. Procedures Surgical History Date Name Laterality Status Provider Name and Address Organization Details Recorded Time 05/05/19 18 excision of basal cell carcinoma completed JESSENIA Rice [facility] 05/12/2019 10:17:37 05/05/19 11 cataract surgery completed JESSENIA Rice [facility] 05/12/2019 10:17:26 05/05/19 09 procedure on spine completed Amanda Rojo MA [facility] 05/12/2019 10:18:02 05/05/19 09 bone graft completed Amanda Rojo MA [facility] 05/12/2019 10:18:36 05/05/19 08 cataract surgery completed Amanda Rojo MA [facility] 05/12/2019 10:17:20 05/05/18 98 hemorrhoidectomy completed Amanda Rojo MA [facility] 05/12/2019 10:16:29 05/05/18 98 fissurectomy with sphincterotomy completed Amanda Rojo MA [facility] 05/12/2019 10:16:51 05/05/18 93 hysterectomy completed Amanda Rojo MA [facility] 05/12/2019 10:17:03 05/05/18 75 Tubal Ligation completed Amanda Rojo MA [facility] 05/12/2019 10:16:12 Imaging Results None recorded. Procedure Notes None recorded. Medical Equipment None Reported. Allergies Allergen ID Allergen Name Allergen Category Reaction Reaction Severity Criticality Documentation Date Start Date Code Code System Note Provider Name and Address Organization Details Recorded Time 077607 lisinopri l medicatio n Not available Not available Not available 05/12/2019 99099 RxNorm Not Available Not Available Not Available [...] Available Not Avai lable Fluzone High-Dose Quad (PF) 240 mcg/0.7 mL IM syringe TO [...] Updated DateTime 5 165.1 cm 19.6 kg/m2 04276.1 8 g 98 % 98 % 73 /min 16 /min 118 mm[Hg] 68 mm[Hg] Tracy Juarez MA [place] - [facility] 5 10:22:28 Social History Question Answer Notes LastModified by Organizat ion Details LastModified Time Tobacco Smoking Status Never Smoker Amanda Rojo MA null, [place] - [facility] 05/12/2019 10:20:07 Do You Have An Advance Directive? No Information not available 05/12/2019 What Is Your Level Of Alcohol Consumption? None Information not available 05/12/2019 What Is Your Level Of Caffeine Consumption? Moderate Information not available 05/12/2019 How Much Tobacco Do You Chew? None Information not available 05/12/2019 In The 14 Days Before Symptom Onset, Have You Had Close Contact With A Laboratory-confi rmed COVID-19 While That Case Was Ill? [...] Anxious, Or Unable To Sleep At Night)? [id number] Information not available 01/21/2022 Do You Use [...] Depression N COPD N Blood Clots N Eating Disorder N Skin Problems N Anemia N Heart Attack ([place]) N Anxiety Disorder N Diabetes N Muscle, [...] 14:53:59 Influenza, high-dose, quadrivalent, PF 1 completed [place] [facility] 06/25/2024 09:24:22 Influenza, adjuvanted, quadrivalent, PF 2 completed [place] [facility] 06/25/2024 09:24:22 COVID-19, mRNA, LNP-S, PF, 100 mcg/0.5mL dose or 50 mcg/0.25mL dose 2 [place] [facility] 06/25/2024 09:24:22 COVID-19, mRNA, LNP-S, PF, 100 mcg/0.5mL dose or 50 mcg/0.25mL dose 1 [place] [facility] 06/25/2024 09:24:22 zoster live 7 completed [place] [facility] 06/25/2024 09:24:22 zoster live 8 completed [place] [facility] 06/25/2024 09:24:22 Influenza, high-dose, trivalent, PF 7 completed [place] [facility] 06/25/2024 09:24:22 Influenza, high-dose, trivalent, PF 6 [place] [facility] 06/25/2024 09:24:22 Influenza, split virus, trivalent, preservative 5 completed [place] [facility] 06/25/2024 09:24:22 COVID-19, mRNA, LNP-S, PF, 100 mcg/0.5mL dose or 50 mcg/0.25mL dose 1 completed Faith Bar[place] [facility] 06/12/2020 16:20:10 COVID-19, mRNA, LNP-S, PF, 100 mcg/0.5mL dose or 50 mcg/0.25mL dose 1 completed Dalia Chowdh[place] [facility] 07/10/2020 17:52:56 Pneumococcal conjugate PCV20, polysaccharide [id number] conjugate, adjuvant, PF 3 completed Tayler Moscos[place] [facility] 04/03/2023 12:32:41 Influenza, high-dose, quadrivalent, PF 3 completed Tayler Moscos[place] [facility] 04/03/2023 12:32:42 Past Encounters Encounter ID Performer Location Encounter Start Date Encounter Closed Date Diagnosis/Indication Diagnosis SNOMED-CT Code Diagnosis ICD10 Code Diagnosis Note [id number] Flavio Navarro PA-C [facility] [address] [facility] [place] [address] 06/25/2024 10:12:25 06/25/2024 10:44:17 Pain of right shoulder joint 6368260777 0547231 M25.511 Underweight 904621334 R6 3.6 Health Concerns Section Related Observation LastModified by Organization Detai ls LastModified Time None Recorded Concern Status LastModified by Organization Details LastModified Time None Recorded Payers Encounter Date Sequence Insurance Name Policy Number Policy Cuenca Covered Member ID Cuenca Member ID Guarantor Name 06/25/2024 1 [facility] (MEDICARE REPLACEMENT/A DVANTAGE - PPO) [id number] William Kimball [id number] Waldo Kimball Notes Date Note Type Note Provider Name and Address Organization Details Recorded Time 06/25/2024 text/html ran into the wall with rt shoulder 4 to 5 weeks ago..has improved very slightly..limit ed ROM.. Flavio Navarro PA-C Attn: Accounting,[address] [facility], [place], [address], [place] [facility] 06/25/2024 10:44:13 OBGyn Episode No OBEpisode recorded.
== END 2024-06-25 10:09 | disposition home or self-care (01) ==
LOC: CHSIMG 10:11
PROVIDERS: PCP Physician Assistant; Visit Provider Physician Assistant
DX: M25.511 Pain in right shoulder (principal)
CPT/HCPCS: 73030